=== PATIENT | male | born 1995 | race Two or more races ===

== ENCOUNTER 2018-06-15 21:03 | Emergency (ER) | payer MEDICAID ==
[~2018-06-15] VITALS: Ht 175.3 cm; Wt 82.6 kg
--- NOTE | 2018-06-15 21:30 | NUR ---
PT BIBSELF FROM HOME C/C HEADACHE X 1 WEEK. +N, -V/D. -BLURRY VISION. PT AOX4. NAD NOTED. RESP EVEN AND UNLABORED. PT ON MONITOR IN BED 9 WITH FAMILY AT BEDSIDE. WILL CONTINUE TO MONITOR.
[2018-06-15 21:37] VITALS: BP 139/76
[2018-06-15] MEDS ORDERED: ACETAMINOPHEN ES 500 MG TABLET ONE (22:13)
[2018-06-15] MEDS ORDERED: ACETAMINOPHEN ES 500 MG TABLET PO ONE (22:30)
== END 2018-06-15 23:02 | disposition home or self-care (01) ==
LOC: ER 21:10
DX: R51 Headache (principal); Z98.890 Other specified postprocedural states

== ENCOUNTER 2019-12-23 12:34 | Emergency (ER) | payer MEDICAID, OTHER ==
[~2019-12-23] VITALS: Ht 175.3 cm; Wt 78.9 kg
[2019-12-23 12:42] VITALS: BP 115/73
[2019-12-23] MEDS ORDERED: ONDANSETRON 4 MG TAB.RAPDIS ONE (12:57)
[2019-12-23] MEDS ORDERED: ONDANSETRON 4 MG TAB.RAPDIS SL ONE (13:30)
--- NOTE | 2019-12-23 13:31 | NUR ---
ZOFRAN 4MG SL X 1 DOSE GIVEN PER MD ORDERED. UNABLE TO SIGN OFF ON [employer].
== END 2019-12-23 13:31 | disposition home or self-care (01) ==
LOC: ER 12:37
DX: K27.9 Peptic ulcer, site unspecified, unspecified as acute or chronic, without hemorrhage or perforation (principal); Z98.890 Other specified postprocedural states
CPT/HCPCS: 99283; Q0162

== ENCOUNTER 2020-03-15 16:33 | Emergency (ER) | payer OTHER ==
[~2020-03-15] VITALS: Ht 175.3 cm; Wt 79.4 kg
[2020-03-15 16:35] VITALS: BP 139/93
[2020-03-15] MEDS ORDERED: LIDOCAINE HCL/PF 1% 30 ML SDV ONE (16:55)
--- NOTE | 2020-03-15 16:56 | NUR ---
ARNOLD CHRISTIANSON BY BEDSIDE.
[2020-03-15] MEDS ORDERED: TDAP [DIPH/PERTUSSIS/TET] 0.5 ML VIAL IM ONE ×2 (17:59→18:00)
--- NOTE | 2020-03-15 18:08 | NUR ---
WOUND CARE DONE. PT GIVEN TETANUS SHOT. Patient discharged to home in stable condition. Written and verbal after care instructions given. Patient verbalizes understanding of instruction.
== END 2020-03-15 18:09 | disposition home or self-care (01) ==
LOC: ER 16:36
DX: S90.112A Contusion of left great toe without damage to nail, initial encounter (principal); Z98.890 Other specified postprocedural states; W23.0XXA Caught, crushed, jammed, or pinched between moving objects, initial encounter; Y93.67 Activity, basketball; Y92.310 Basketball court as the place of occurrence of the external cause; Y99.8 Other external cause status
CPT/HCPCS: 11730; 73660; 90471; 90715; 99284; J3490

== ENCOUNTER 2020-08-06 18:29 | Emergency (ER) | payer OTHER ==
[~2020-08-06] VITALS: Ht 175.3 cm; Wt 81.6 kg
[2020-08-06 18:46] VITALS: BP 129/74
[2020-08-06] MEDS ORDERED: IBUP-1955 PO (18:56)
--- NOTE | 2020-08-06 19:50 | NUR ---
Patient discharged to home in stable condition. Written and verbal after care instructions given. Patient verbalizes understanding of instruction.
--- NOTE | 2020-08-06 19:50 | NUR ---
TECH AT BEDSIDE FOR ORTHOTIC PLACEMENT.
== END 2020-08-06 19:51 | disposition home or self-care (01) ==
LOC: ER 18:31
DX: S83.8X1A Sprain of other specified parts of right knee, initial encounter (principal); Z98.890 Other specified postprocedural states; Z90.49 Acquired absence of other specified parts of digestive tract; X50.1XXA Overexertion from prolonged static or awkward postures, initial encounter; Y93.67 Activity, basketball; Y92.310 Basketball court as the place of occurrence of the external cause; Y99.8 Other external cause status
CPT/HCPCS: 73564-TC